=== PATIENT | female | born 1955 | race Caucasian/White ===

== ENCOUNTER 2016-11-22 05:43 | Emergency (ER) | payer OTHER ==
[2016-11-22] MEDS ORDERED: Ondansetron HCl/PF 4 MG/2 ML Vial ONE (05:57)
[2016-11-22 06:10] LABS: #Basophils 0.1 thou/uL (0.0-0.2); #Eosinphils 0.2 thou/uL (0.0-0.7); #Lymphocytes 2.2 thou/uL (1.20-3.40); #Monocytes 0.4 thou/uL (0.11-0.59); #Neutrophils 4.1 thou/uL (1.40-6.50); %Basophils 0.7 % (0.0-1.0); %Eosinophils 2.4 % (0.0-10.0); %Monocytes 6.1 % (0.0-10.0); Hematocrit 44.6 % (36.0-47.0); Mean Platelet Volume 6.9 fL (7.4-10.4); Red Blood Cell (RBC) Count 4.73 mill/uL (4.20-5.40)
[2016-11-22 06:29] LABS: ALT (SGPT) 12 U/L (8-55); AST (SGOT) 13 U/L (5-34); Alkaline Phosphatase 69 U/L (40-150); Anion Gap 16 mmol/L (10-20); BUN (Urea Nitrogen) 16 mg/dL (9.8-20.1); Bilirubin, Total 0.4 mg/dL (0.2-1.2); Calc. Creatinine Clearance 0 mL/min (70-130); Calcium 9.1 mg/dL (7.8-10.44); Carbon Dioxide 21 mmol/L (23-31); Chloride 106 mmol/L (98-107); Estimated GFR-MDRD 57; Globulin 2.9 g/dL (2.4-3.5); Lipase 30 U/L (8-78); Protein, Total 6.9 g/dL (6.0-8.3)
[2016-11-22 08:10] LABS: Bilirubin Negative (Negative); Blood, Urine Moderate (Negative); Glucose, Urine (Dipstick) Negative (Negative); Ketone, Urine Negative (Negative); Nitrite Negative (Negative); Protein, Urine (Dipstick) Negative (Neg-Trace); Urobilinogen 0.2 mg/dL (0.2-1.0)
[2016-11-22 08:13] LABS: Bacteria/HPF None Seen HPF (None Seen); Hyaline Casts/LPF 0-3 HYALINE CAST LPF (0-3 Hyaline); RBC/HPF 21-50 HPF (0-3); Squamous Epithelial None Seen HPF (0-3); WBC/HPF None Seen HPF (0-3)
[2016-11-22] MEDS ORDERED: Ketorolac Tromethamine 30 MG/ML VIAL ONE (08:18)
--- NOTE | 2016-11-22 08:46 | CT ---
PRELIMINARY REPORT/[facility]/EMERGENCY AFTER HOURS PROCEDURE: EXAM: CT Abdomen and Pelvis Without Intravenous Contrast EXAM DATE/TIME: 11/22/2016 6:30 AM CLINICAL HISTORY: 61 years old, female; Pain; Other: Rt flank pain; Patient HX: Right flank pain x 2 hours, states "fe els like a kidney stone". ; Additional info: Appy, hysterectomy with oophorectomy, lumbar esix3 left breast mass removal, cervical esix2, lasik, lesion removal tip of nose, bilateral rotator cuff SX. TECHNIQUE: Axial computed tomography images of the abdomen and pelvis without intravenous contrast. All CT scan s at this facility use one or more dose reduction techniques, viz.: automated exposure control; ma/k V adjustment per patient size (including targeted exams where dose is matched to indication; i.e. he ad); or iterative reconstruction technique. Coronal reformatted images were created and reviewed. COMPARISON: No relevant prior studies available. FINDINGS: Lower thorax: Minimal dependent changes are present in the lung bases. ABDOMEN: Liver: Unremarkable. Gallbladder and bile ducts: Unremarkable. No calcified stones. No ductal dilation. Pancreas: Unremarkable. No ductal dilation. Spleen: Calcified splenic granulomata. Adrenals: Unremarkable. No mass. Kidneys and ureters: Mild right perinephric and periureteral stranding with no definite stone identi fied. Findings could possibly represent a recently passed stone or an ascending urinary tract infect ion. No hydronephrosis. Stomach and bowel: Unremarkable. No obstruction. No mucosal thickening. Appendix: The appendix is seen and is normal in appearance. PELVIS: Bladder: Unremarkable. No stones. Reproductive: Status post hysterectomy. ABDOMEN and PELVIS: Intraperitoneal space: Unremarkable. No free air. No significant fluid collection. Bones/joints: No acute fracture. No dislocation. Soft tissues: Unremarkable. Vasculature: Unremarkable. No abdominal aortic aneurysm. Lymph nodes: Unremarkable. No enlarged lymph nodes. IMPRESSION: 1. Mild right perinephric and periureteral stranding with no definite stone identified. Findings cou ld possibly represent a recently passed stone or an ascending urinary tract infection. 2. Remainder of findings as described above. Thank you for allowing us to participate in the care of your patient. Dictated and Authenticated by: Ruth Kumar MD 11/22/2016 7:21 AM Central Time ([place] \\T\\ [place]) FINAL REPORT CT ABDOMEN AND PELVIS WITHOUT CONTRAST: Date: 11/22/16 FINDINGS/IMPRESSION: I agree with the preliminary report given by Dr. Ruth Kumar of [facility]. POS: [facility]
== END 2016-11-22 08:50 | disposition home or self-care (01) ==
LOC: ERS 05:43
DX: N20.0 Calculus of kidney (principal); Z79.82 Long term (current) use of aspirin; Z79.899 Other long term (current) drug therapy
CPT/HCPCS: 74176; 80053; 81003; 81015; 83690; 85025; 87086; 96361; 96374; 96375; J1885; J2270; J2405

== ENCOUNTER 2017-03-17 12:23 | Outpatient (CLI) | payer OTHER | END 2017-03-17 12:24 | disposition home or self-care (01) | LOC: BICMAMMO 12:23 | PROVIDERS: ATTEND Specialist | DX: Z12.31 Encounter for screening mammogram for malignant neoplasm of breast (principal); R92.1 Mammographic calcification found on diagnostic imaging of breast | CPT/HCPCS: 77063; 77067 ==

== ENCOUNTER 2018-03-20 10:53 | Outpatient (CLI) | payer OTHER ==
--- NOTE | 2018-03-20 13:18 | BD ---
BONE DENSITOMETRY USING DEXA: HISTORY: Postmenopausal screening for osteoporosis. LUMBAR SPINE BMD (g/cm2) T-SCORE Z-SCORE L1 1.019 0.3 1.7 L2 1.230 1.8 3.5 L3 1.189 1.0 2.7 L4 1.075 0.1 1.9 TOTAL 1.130 0.8 2.4 NECK 0.747 -0.9 0.5 TOTAL 0.993 0.4 1.6 IMPRESSION: Normal bone mineral density. No evidence of osteopenia/osteoporosis. POS: [facility]
== END 2018-03-20 10:54 | disposition home or self-care (01) ==
LOC: BICMAMMO 10:53
PROVIDERS: ATTEND Specialist
DX: Z12.31 Encounter for screening mammogram for malignant neoplasm of breast (principal); Z13.820 Encounter for screening for osteoporosis
CPT/HCPCS: 77063; 77067; 77080

== ENCOUNTER 2019-03-26 10:26 | Outpatient (CLI) | payer OTHER ==
--- NOTE | 2019-03-26 11:09 | MMO ---
Bilateral MAMMO Bilat Screen [facility]. CLINICAL HISTORY: Patient is 63 years old and is seen for screening. The patient has no family history of breast cancer. The patient has no personal history of cancer. The patient has a history of left Excisional Biopsy in 2003 - benign and left Cyst Aspiration in 2003 - benign. VIEWS: The views performed were: bilateral craniocaudal with tomosynthesis and bilateral mediolateral oblique with tomosynthesis. FILMS COMPARED: The present examination has been compared to prior imaging studies performed at [facility] on 03/15/2015, 03/13/2016, 03/17/2017 and 03/20/2018. This study has been interpreted with the assistance of computer-aided detection. MAMMOGRAM FINDINGS: The breasts are heterogeneously dense, which could obscure a lesion on mammography. Nodularity is stable. There are no suspicious masses, suspicious calcifications, or new areas of architectural distortion. IMPRESSION: THERE IS NO MAMMOGRAPHIC EVIDENCE OF MALIGNANCY. A ROUTINE FOLLOW-UP MAMMOGRAM IN 1 YEAR IS RECOMMENDED. THE RESULTS OF THIS EXAM WERE SENT TO THE PATIENT. ACR BI-RADS Category 2 - Benign finding MAMMOGRAPHY NOTE: 1. A negative mammogram report should not delay a biopsy if a dominant of clinically suspicious mass is present. 2. Approximately 10% to 15% of breast cancers are not detected by mammography. 3. Adenosis and dense breasts may obscure an underlying neoplasm. Reported by: HONORIO HOOK MD Electonically Signed: [id number]
== END 2019-03-26 10:27 | disposition home or self-care (01) ==
LOC: BICMAMMO 10:26
PROVIDERS: ATTEND Specialist
DX: Z12.31 Encounter for screening mammogram for malignant neoplasm of breast (principal); Z91.89 Other specified personal risk factors, not elsewhere classified
CPT/HCPCS: 77063; 77067

== ENCOUNTER 2020-03-29 12:19 | Outpatient (CLI) | payer MEDICARE, OTHER ==
--- NOTE | 2020-03-29 13:07 | MMO ---
Bilateral MAMMO Bilat Screen [facility]. CLINICAL HISTORY: Patient is 64 years old and is seen for screening. The patient has no family history of breast cancer. The patient has no personal history of cancer. The patient has a history of left Excisional Biopsy in 2003 - benign and left Cyst Aspiration in 2003 - benign. VIEWS: The views performed were: bilateral craniocaudal with tomosynthesis and bilateral mediolateral oblique with tomosynthesis. FILMS COMPARED: The present examination has been compared to prior imaging studies performed at [facility] on 03/13/2016, 03/17/2017, 03/20/2018 and 03/26/2019. This study has been interpreted with the assistance of computer-aided detection. MAMMOGRAM FINDINGS: The breasts are heterogeneously dense, which could obscure a lesion on mammography. Finding 1: There are stable post operative changes seen in the left breast. Finding 2: Scattered nodules are seen, some slightly larger and some slightly smaller, compatible with fluctuating cysts. There are no suspicious masses, suspicious calcifications, or new areas of architectural distortion. IMPRESSION: THERE IS NO MAMMOGRAPHIC EVIDENCE OF MALIGNANCY. A ROUTINE FOLLOW-UP MAMMOGRAM IN 1 YEAR IS RECOMMENDED. THE RESULTS OF THIS EXAM WERE SENT TO THE PATIENT. ACR BI-RADS Category 2 - Benign finding MAMMOGRAPHY NOTE: 1. A negative mammogram report should not delay a biopsy if a dominant of clinically suspicious mass is present. 2. Approximately 10% to 15% of breast cancers are not detected by mammography. 3. Adenosis and dense breasts may obscure an underlying neoplasm. Reported by: HONORIO HOOK MD Electonically Signed: [id number]
--- NOTE | 2020-03-29 14:01 | BD ---
DEXA BONE DENSITY STUDY: Date: 03/29/2020 HISTORY: Postmenopausal. FINDINGS: Lumbar Spine: BMD (g/cm2) L1 1.000 T-Score: +0.1 L2 1.253 T-Score: +2.0 L3 1.303 T-Score: +2.0 L4 1.160 T-Score: +0.9 Total 1.180 T-Score: +1.2 Left Femoral Neck: 0.753 T-Score: -0.9 Total Femur: 0.999 T-Score: +0.5 IMPRESSION: Normal bone mineral density of the lumbar spine and left femoral neck. POS: [facility]
== END 2020-03-29 12:20 | disposition home or self-care (01) ==
LOC: BICMAMMO 12:19
PROVIDERS: ATTEND Specialist
DX: Z12.31 Encounter for screening mammogram for malignant neoplasm of breast (principal); M81.0 Age-related osteoporosis without current pathological fracture; Z91.89 Other specified personal risk factors, not elsewhere classified
CPT/HCPCS: 77063; 77067; 77080

== ENCOUNTER 2020-06-19 09:00 | Outpatient (CLI) | payer MEDICARE, OTHER | END 2020-06-19 09:01 | disposition home or self-care (01) | LOC: BICRAD 09:00 | PROVIDERS: ATTEND Specialist | DX: S89.91XA Unspecified injury of right lower leg, initial encounter (principal); M79.604 Pain in right leg; M25.461 Effusion, right knee ==

== ENCOUNTER 2020-11-03 10:25 | Outpatient (CLI) | payer MEDICARE, OTHER | END 2020-11-03 10:26 | disposition home or self-care (01) | LOC: TBSIIMAG 10:25 | PROVIDERS: ATTEND Specialist | DX: M54.2 Cervicalgia (principal); M47.812 Spondylosis without myelopathy or radiculopathy, cervical region; M51.36 Other intervertebral disc degeneration, lumbar region; M48.02 Spinal stenosis, cervical region | CPT/HCPCS: 72141 ==

== ENCOUNTER 2021-04-02 09:46 | Outpatient (CLI) | payer MEDICARE, OTHER | END 2021-04-02 09:47 | disposition home or self-care (01) | LOC: BICMAMMO 09:46 | PROVIDERS: ATTEND Specialist | DX: Z12.31 Encounter for screening mammogram for malignant neoplasm of breast (principal); Z91.89 Other specified personal risk factors, not elsewhere classified | CPT/HCPCS: 77063; 77067 ==

== ENCOUNTER 2021-08-21 17:01 | Emergency (ER) | payer MEDICARE, OTHER ==
[~2021-08-21 17:01] MED LIST: Iopamidol-370 76% 500 ML 1 ML ONE
[2021-08-21 17:42] LABS: #Eosinphils 0.1 thou/uL (0.0-0.7); #Lymphocytes 1.3 thou/uL (1.20-3.40); #Monocytes 0.6 thou/uL (0.11-0.59); %Basophils 0.4 % (0.0-1.0); %Lymphocytes 25.7 % (21.0-51.0); %Monocytes 11.3 % (0.0-10.0); %Neutrophils 61.5 % (42.0-75.0); Mean Corpuscular HGB CONC 32.1 g/dL (32.0-36.0); Mean Corpuscular Hemoglobin 31.3 pg (27.0-31.0); Mean Corpuscular Volume 97.3 fL (78.0-98.0); Mean Platelet Volume 6.9 fL (7.4-10.4); Platelet Count 195 thou/uL (130-400); RBC Distribution Width 11.5 % (11.5-14.5); Red Blood Cell (RBC) Count 4.79 mill/uL (4.20-5.40); White Blood Cell (WBC) Count 4.9 thou/uL (4.8-10.8)
[2021-08-21] MEDS ORDERED: Dexamethasone 10 MG/ML VIAL ONE (17:47)
[2021-08-21 18:04] LABS: ALT (SGPT) 16 U/L (8-55); AST (SGOT) 14 U/L (5-34); Alkaline Phosphatase 75 U/L (40-110); Anion Gap 12 mmol/L (10-20); BUN (Urea Nitrogen) 9 mg/dL (9.8-20.1); Bilirubin, Total 0.3 mg/dL (0.2-1.2); Calc. Creatinine Clearance 0 mL/min (70-130); Calcium 9.2 mg/dL (7.8-10.44); Carbon Dioxide 28 mmol/L (23-31); Chloride 106 mmol/L (98-107); Estimated GFR 80; Glucose 128 mg/dL (80-115); Potassium 3.7 mmol/L (3.5-5.1); Sodium 142 mmol/L (136-145)
[2021-08-21 19:00] LABS: SARS-CoV-2 NAA Rapid Test Not Detected (NotDetected)
== END 2021-08-21 19:46 | disposition home or self-care (01) ==
LOC: ERS 17:01
DX: J04.0 Acute laryngitis (principal); Z20.822 Contact with and (suspected) exposure to COVID-19; Z79.899 Other long term (current) drug therapy; Z79.82 Long term (current) use of aspirin
CPT/HCPCS: 0240U; 70492; 71045; 80053; 83605; 85025; 94760; 36415; 96361; 96374; J1100; Q9967

== ENCOUNTER 2022-04-09 09:53 | Outpatient (CLI) | payer MEDICARE | END 2022-04-09 09:54 | disposition home or self-care (01) | LOC: BICMAMMO 09:53 | PROVIDERS: ATTEND Specialist | DX: Z12.31 Encounter for screening mammogram for malignant neoplasm of breast (principal); Z91.89 Other specified personal risk factors, not elsewhere classified; Z98.890 Other specified postprocedural states | CPT/HCPCS: 77063; 77067 ==

== ENCOUNTER 2022-12-25 09:59 | Outpatient (CLI) | payer MEDICARE | END 2022-12-25 10:00 | disposition home or self-care (01) | LOC: BICMAMMO 09:59 | PROVIDERS: ATTEND Specialist | DX: M85.9 Disorder of bone density and structure, unspecified (principal); M81.0 Age-related osteoporosis without current pathological fracture | CPT/HCPCS: 77080 ==

== ENCOUNTER 2023-01-15 09:22 | Outpatient (CLI) | payer MEDICARE | END 2023-01-15 09:23 | disposition home or self-care (01) | LOC: BICRAD 09:22 | PROVIDERS: ATTEND Specialist | DX: M79.672 Pain in left foot (principal) ==

== ENCOUNTER 2023-01-31 12:25 | Outpatient (CLI) | payer MEDICARE | END 2023-01-31 12:26 | disposition home or self-care (01) | LOC: BICMRI 12:25 | PROVIDERS: ATTEND Specialist | DX: M79.672 Pain in left foot (principal); M25.872 Other specified joint disorders, left ankle and foot; R93.6 Abnormal findings on diagnostic imaging of limbs ==

== ENCOUNTER 2023-04-10 12:33 | Outpatient (CLI) | payer MEDICARE | END 2023-04-10 12:34 | disposition home or self-care (01) | LOC: BICMAMMO 12:33 | PROVIDERS: ATTEND Specialist | DX: Z12.31 Encounter for screening mammogram for malignant neoplasm of breast (principal); N63.10 Unspecified lump in the right breast, unspecified quadrant; N63.20 Unspecified lump in the left breast, unspecified quadrant; Z91.89 Other specified personal risk factors, not elsewhere classified; Z98.890 Other specified postprocedural states | CPT/HCPCS: 77063; 77067 ==

== ENCOUNTER 2023-04-14 10:50 | Outpatient (CLI) | payer MEDICARE | END 2023-04-14 10:51 | disposition home or self-care (01) | LOC: BICULT 10:50 | PROVIDERS: ATTEND Specialist | DX: N63.41 Unspecified lump in right breast, subareolar (principal); N60.01 Solitary cyst of right breast ==

== ENCOUNTER → 2023-11-18 | Day surgery (SDC) | payer MEDICARE | LOC: BICULT 12:15 | PROVIDERS: ATTEND Specialist | PROC: 0H9U3ZZ Drainage of Left Breast, Percutaneous Approach (ICD-10-PCS; principal; 2023-11-18) | DX: N60.12 Diffuse cystic mastopathy of left breast (principal); R92.8 Other abnormal and inconclusive findings on diagnostic imaging of breast | CPT/HCPCS: 76942 ==

== ENCOUNTER 2024-04-22 10:24 | Outpatient (CLI) | payer MEDICARE | END 2024-04-22 10:25 | disposition home or self-care (01) | LOC: BICCT 10:24 | PROVIDERS: ATTEND Specialist | DX: R10.10 Upper abdominal pain, unspecified (principal); M46.1 Sacroiliitis, not elsewhere classified | CPT/HCPCS: 36415; 74177; 82565 ==

== ENCOUNTER 2024-12-28 10:43 | Outpatient (CLI) | payer MEDICARE | END 2024-12-28 10:44 | disposition home or self-care (01) | LOC: BICMAMMO 10:43 | PROVIDERS: ATTEND Specialist | DX: Z13.820 Encounter for screening for osteoporosis (principal); M81.0 Age-related osteoporosis without current pathological fracture | CPT/HCPCS: 77080 ==